=== PATIENT | male | born 1945 | race Caucasian/White ===

== ENCOUNTER → 2017-07-01 | Day surgery (SDC) | payer OTHER, MEDICARE ==
[~2017-07-01] MED LIST: Lactated Ringers 1,000 ML IV SCH; Midazolam 1 MG/ML 2 ML SDV ONE; Propofol 200 MG/20 ML SDV ONE; fentaNYL 100 MCG/2 ML SDV ONE
[2017-07-01 11:14] VITALS: BP 114/71
--- NOTE | 2017-07-01 13:46 | OR ---
DATE OF PROCEDURE: 07/01/2017 PREOPERATIVE DIAGNOSIS: Colon cancer screening. POSTOPERATIVE DIAGNOSIS: Small colon polyp 15 cm from the anal verge. PROCEDURE: Colonoscopy to the cecum with biopsy resection of small colon polyp 15 cm from the anal verge. ANESTHESIA: IV anesthesia with monitored anesthesia care. INDICATION: This 71-year-old white male is referred for a colonoscopy for colon cancer screening. He has never had a colonoscopic exam. Of interest, he says his father and grandfather both had colon cancer. I counseled him for the procedure, including risks and alternatives, and he gave his informed consent to proceed. DESCRIPTION OF PROCEDURE: The patient was placed in the left lateral decubitus position. IV anesthesia was administered by the Anesthesia Service. Time-out was held. A rectal exam was performed, which was unremarkable. The flexible video Olympus colonoscope was introduced through his anus, up his rectum, and out his colon, all the way to the cecum. Once the cecum was reached, the scope was slowly withdrawn, examining the mucosa throughout. No mucosal abnormalities were noted until we reached 15 cm from the anal verge. Here, a small polyp was seen, which was removed with a couple of bites of the biopsy forceps. The scope was brought back in the rectum, where it was retroflexed. The distal rectum appeared unremarkable. The scope was straightened and removed. He tolerated the procedure well. Murray Stewart MD /[id number]
== END ==
LOC: JP.SDS 07:40
PROVIDERS: ATTEND Surgery
DX: Z12.11 Encounter for screening for malignant neoplasm of colon (principal); K63.5 Polyp of colon; I10 Essential (primary) hypertension; J44.9 Chronic obstructive pulmonary disease, unspecified; Z88.0 Allergy status to penicillin; F17.200 Nicotine dependence, unspecified, uncomplicated
CPT/HCPCS: 45380; J2250; J2704; J3010; J7120; 88305

== ENCOUNTER 2020-06-15 16:56 | Emergency (ER) | payer OTHER, MEDICARE ==
--- NOTE | 2020-06-15 17:02 | EDM.PDOC ---
<Steven Chong R - Last Filed: 06/15/20 18:09> ED HPI GENERAL MEDICAL PROBLEM - General Chief Complaint: Fever Stated Complaint: DIFFICULTY BREATHING Time Seen by Provider: 06/15/20 16:59 Source of Information: Reports: Patient, Family, Provider - History of Present Illness INITIAL COMMENTS - FREE TEXT/NARRATIVE: Mr. Rojas is a 74-year-old male that presents ambulatory to the [facility] in clinic and was seen by nurse practitioner today for reported temperature up to 101 degrees associate with hypoxemia and sats 89% in the clinic on room air. Patient is thereafter directed to the ER via wheelchair. Patient has a known history of COPD. Upon ED arrival, patient notes that he has had the acute onset over the last 4 hours of mild body aches, chills, joint aches and shortness of breath with activity and slightly more sob at rest. He has had no headache, neck pain, jaw pain, chest pain with inspiration, abdominal pain, diarrhea or urinary symptoms. No skin rash. No hemoptysis. No weight loss. Not currently on antibiotics. Not on oral steroids. No recent travel, sick or ill contacts. Patient notes mild runny nose, no diarrhea. No Covid exposures. Denies any change in taste or smell. Prior to the last 4 hours, he has been feeling at his baseline. - Related Data Allergies Allergy/AdvReac Type Severity Reaction Status Date / Time Penicillins Allergy Dizziness Verified 06/15/20 17:22 Home Meds: Home Meds Albuterol [Proair HFA] 1 - 2 puff INH Q4HR PRN 08/29/14 [History] Albuterol/Ipratropium [DuoNeb 3.0-0.5 MG/3 ML] 3 ml IH QID 06/29/17 [History] Aspirin [Halfprin] 1 tab PO DAILY 06/29/17 [History] Budesonide/Formoterol Fumarate [Symbicort 160-4.5 Mcg Inhaler] 2 puff IH BID 06/29/17 [History] Furosemide [Lasix] 20 mg PO DAILY 06/29/17 [History] Lisinopril 20 mg PO DAILY 06/29/17 [History] Magnesium Amino Acid Chelate [Magnesium] 500 mg PO DAILY 06/29/17 [History] Naphazoline [AK-Con 0.1% Ophth Soln] 1 drop OP QID 06/29/17 [History] Rosuvastatin [Crestor] 5 mg PO BEDTIME 06/15/20 [History] Past Medical History HEENT History: Reports: Cataract, Hard of Hearing, Impaired Vision Cardiovascular History: Reports: High Cholesterol, Hypertension, SOB on Exertion Respiratory History: Reports: COPD Gastrointestinal History: Reports: None Musculoskeletal History: Reports: Back Pain, Chronic, Fracture, Gout, Neck Pain, Chronic, Osteoarthritis Neurological History: Reports: CVA Endocrine/Metabolic History: Reports: Obesity/BMI 30+ Dermatologic History: Reports: Other (See Below) Other Dermatologic History: fungal skin condition - Infectious Disease History Infectious Disease History: Reports: Chicken Pox, Measles, Mumps - Past Surgical History HEENT Surgical History: Reports: Tonsillectomy Cardiovascular Surgical History: Reports: None Respiratory Surgical History: Reports: None GI Surgical History: Reports: None Endocrine Surgical History: Reports: None Neurological Surgical History: Reports: None Musculoskeletal Surgical History: Reports: Other (See Below) Other Musculoskeletal Surgeries/Procedures:: Smashed right finger - stitches Social & Family History - Caffeine Use Caffeine Use: Reports: None ED ROS GENERAL - Review of Systems Review Of Systems: See Below Constitutional: Reports: Fever, Chills, Malaise, Weakness, Weight Loss, Weight Gain HEENT: Reports: Rhinitis. Denies: Dental Pain, Ear Discharge, Ear Pain, Eye Pain, Nose Pain, Throat Pain, Throat Swelling Respiratory: Reports: Shortness of Breath, Cough. Denies: Pleuritic Chest Pain, Hemoptysis Cardiovascular: Reports: Dyspnea on Exertion, Lightheadedness. Denies: Chest Pain, Edema, Orthopnea, Palpitations, Syncope Endocrine: Reports: Fatigue. Denies: Polyuria GI/Abdominal: Reports: No Symptoms. Denies: Abdominal Pain, Constipation, Diarrhea, Difficulty Swallowing, Stool Incontinence, Vomiting : Reports: No Symptoms. Denies: Flank Pain, Frequency, Urgency Musculoskeletal: Reports: Other (joint pain). Denies: Neck Pain, Shoulder Pain, Arm Pain, Back Pain Skin: Denies: Rash, Lesions Neurological: Reports: Dizziness, Weakness. Denies: Headache, Numbness, Paresthesia, Seizure, Tremors, Change in Speech Psychiatric: Denies: Confusion Hematologic/Lymphatic: Denies: Anemia, Easy Bruising Immunologic: Reports: No Symptoms (all other 10 negative. ) ED EXAM, SEPSIS - Physical Exam Exam Limited By: Other (PPE/N95 and covid precuations) General Appearance: Alert, Mild Distress Eye Exam: Bilateral Eye: Other (mild injection) Ears: Hearing Grossly Normal Nose: Normal Inspection, Other (wearing mask around neck) Throat/Mouth: Normal Lips, Normal Oropharynx, Normal Voice, No Airway Compromise Head: Atraumatic, Normocephalic Neck: Normal Inspection, Full Range of Motion. No: Lymphadenopathy (R), Lymphadenopathy (L) Respiratory/Chest: Chest Non-Tender, Prolonged Expiration Cardiovascular: Regular Rate, Rhythm, No Edema, No JVD, No Murmur, No Rub Peripheral Pulses: 2+: Dorsalis Pedis (L), Dorsalis Pedis (R) GI/Abdominal Exam: Normal Bowel Sounds, Soft, Non-Tender, No Mass. No: Guarding, Rigid, Rebound, Tender, Mass (Male) Exam: Other (normal flanks). No: Rash, Scrotal Swelling, Scrotum Tenderness (L), Scrotum Tenderness (R), Testicular Tenderness (L), Testicular Tenderness (R) Back: Normal Inspection. No: CVA Tenderness (R), Paraspinal Tenderness, Vertebral Tenderness Extremities: Normal Inspection, Non-Tender, Other (no joint swelling. ). No: Pedal Edema, Increased Warmth, Mottled, Pallor, Redness Neurological: Alert, Oriented, Normal Cognition, No Motor/Sensory Deficits Psychiatric: Normal Affect Skin: Warm, Dry, Normal Color, No Rash, Other (undressed head to toe for exam. ) Comments: exam in N95/PPE precautions. #1 Interpretation EKG Date: 06/15/20 Time: 17:29 Rhythm: NSR [place]: LAD-Left [place] Deviation P-Wave: Present QRS: Normal ST-T: Normal QT: Normal Course - Vital Signs Text/Narrative:: Patient presents with acute onset of shortness of breath, fevers over last 4 hours. He does not have signs of respiratory distress and in the ED he is not hypoxic in fact he is satting 93% on room air. Patient's differential is quite broad currently he is pending sepsis labs, procalcitonin, troponin, D-dimer, Covid screen, blood cultures x2. Chest x-ray shows no pneumothorax, no hemothorax. No cephalization. Normal cardiac silhouette. There is scattered bibasilar infiltrate versus scarring. Flattened hemidiaphragms. Care is transitioned to Dr. Dukes officer at 1810 for final disposition and review of pending laboratory studies. Departure - Departure Disposition: Home, Self-Care 01 Clinical Impression: COPD exacerbation - Discharge Information Instructions: Chronic Obstructive Pulmonary Disease, [id number] Referrals: Eddie Stanford MD [Primary Care Provider] - Forms: ED Department Discharge Additional Instructions: Take full course of antibiotics, take full course of prednisone please followup with your primary care provider in 3-5 days if not better, please call return to the emergency department with worsening of symptoms. <OfficerErnst - Last Filed: 06/15/20 19:12> ED EXAM, SEPSIS - Physical Exam Exam: See Below Text/Narrative:: Cardiovascular demonstrates regular rate and rhythm S1-S2 lung sounds are distant and on appreciate any adventitious noises Course - Vital Signs Last Recorded V/S: Last Vital Signs Temp 99.7 F 06/15/20 17:37 Pulse 91 06/15/20 17:34 Resp 22 H 06/15/20 17:34 BP 142/73 H 06/15/20 17:34 Pulse Ox 91 L 06/15/20 17:34 - Orders/Labs/Meds Orders: Active Orders 24 hr Category Date Time Status EKG Documentation Completion [RC] ASDIRECTED Care 06/15/20 17:07 Active EKG Documentation Completion [RC] ASDIRECTED Care 06/15/20 17:07 Active Chest 1V Frontal [CR] Stat Exams 06/15/20 17:07 Taken CULTURE BLOOD [BC] Stat Lab 06/15/20 17:40 Received CULTURE BLOOD [BC] Urgent Lab 06/15/20 17:30 Received Sodium Chloride 0.9% [Normal Saline] 1,000 ml Med 06/15/20 18:00 Active IV ASDIRECTED Sodium Chloride 0.9% [Saline Flush] Med 06/15/20 17:07 Active 10 ml FLUSH ASDIRECTED PRN Sodium Chloride 0.9% [Saline Flush] Med 06/15/20 17:07 Active 10 ml FLUSH ASDIRECTED PRN Blood Culture x2 Reflex Set [OM.PC] Urgent Oth 06/15/20 17:22 Ordered Saline Lock Insert [OM.PC] Stat Oth 06/15/20 17:07 Ordered EKG 12 Lead [EK] Stat Ther 06/15/20 17:07 Ordered Medication Orders Sodium Chloride (Normal Saline) 1,000 mls @ 999 mls/hr IV ASDIRECTED ALIDA Last Admin: 06/15/20 18:03 Dose: 999 mls/hr Documented by: YUMI Sodium Chloride (Saline Flush) 10 ml FLUSH ASDIRECTED PRN PRN Reason: Keep Vein Open Sodium Chloride (Saline Flush) 10 ml FLUSH ASDIRECTED PRN PRN Reason: Keep Vein Open Last Admin: 06/15/20 17:52 Dose: 10 ml Documented by: YUMI Labs: Laboratory Tests 06/15/20 06/15/20 06/15/20 Range/Units 17:19 17:19 17:19 WBC 15.2 H (4.5-11.0) K/uL RBC 5.31 (4.30-5.90) M/uL Hgb 13.8 (12.0-15.0) g/dL Hct 43.8 (40.0-54.0) % MCV 83 (80-98) fL MCH 26 L (27-31) pg MCHC 32 (32-36) % Plt Count 194 (150-400) K/uL Neut % (Auto) 82 H (36-66) % Lymph % (Auto) 8 L (24-44) % [place] % (Auto) 10 H (2-6) % Eos % (Auto) 0 L (2-4) % Baso % (Auto) 0 (0-1) % PT 10.6 (9.5-12.0) sec INR 0.97 (0.80-1.20) D-Dimer, Quantitative 1041.57 H (0.0-500.0) ng/mL Sodium (140-148) mmol/L Potassium (3.6-5.2) mmol/L Chloride (100-108) mmol/L Carbon Dioxide (21-32) mmol/L Anion Gap (5.0-14.0) mmol/L BUN (7-18) mg/dL Creatinine (0.8-1.3) mg/dL Est Cr Clr Drug Dosing mL/min Estimated GFR (MDRD) (>60) Glucose (74-106) mg/dL Lactic Acid (0.4-2.0) mmol/L Calcium (8.5-10.1) mg/dL Total Bilirubin (0.2-1.0) mg/dL AST (15-37) U/L ALT (12-78) U/L Alkaline Phosphatase (46-116) U/L Troponin I (0.000-0.056) ng/mL Total Protein (6.4-8.2) g/dL Albumin (3.4-5.0) g/dL Globulin (2.3-3.5) g/dL Albumin/Globulin Ratio (1.2-2.2) Procalcitonin ng/mL Urine Color (YELLOW) Urine Appearance (CLEAR) Urine pH (5.0-8.0) Ur Specific [place] (1.008-1.030) Urine Protein (NEGATIVE) mg/dL Urine Glucose (UA) (NEGATIVE) mg/dL Urine Ketones (NEGATIVE) mg/dL Urine Occult Blood (NEGATIVE) Urine Nitrite (NEGATIVE) Urine Bilirubin (NEGATIVE) Urine Urobilinogen (0.2-1.0) EU/dL Ur Leukocyte Esterase (NEGATIVE) Urine RBC (0-5) Urine WBC (0-5) Ur Epithelial Cells Amorphous Sediment Urine Bacteria Urine Mucus Influenza Type A RNA (NEGATIVE) RSV RNA (INAAT) (NEGATIVE) Influenza Type B RNA (NEGATIVE) SARS-CoV-2 RNA (QUE) (NEGATIVE) 06/15/20 06/15/20 06/15/20 Range/Units 17:19 17:19 17:19 WBC (4.5-11.0) K/uL RBC (4.30-5.90) M/uL Hgb (12.0-15.0) g/dL Hct (40.0-54.0) % MCV (80-98) fL MCH (27-31) pg MCHC (32-36) % Plt Count (150-400) K/uL Neut % (Auto) (36-66) % Lymph % (Auto) (24-44) % [place] % (Auto) (2-6) % Eos % (Auto) (2-4) % Baso % (Auto) (0-1) % PT (9.5-12.0) sec INR (0.80-1.20) D-Dimer, Quantitative (0.0-500.0) ng/mL Sodium 138 L (140-148) mmol/L Potassium 4.4 (3.6-5.2) mmol/L Chloride 103 (100-108) mmol/L Carbon Dioxide 26 (21-32) mmol/L Anion Gap 13.4 (5.0-14.0) mmol/L BUN 30 H D (7-18) mg/dL Creatinine 1.8 H D (0.8-1.3) mg/dL Est Cr Clr Drug Dosing 36.55 mL/min Estimated GFR (MDRD) 37 L (>60) Glucose 111 H (74-106) mg/dL Lactic Acid 1.4 (0.4-2.0) mmol/L Calcium 8.9 (8.5-10.1) mg/dL Total Bilirubin 0.7 (0.2-1.0) mg/dL AST 17 (15-37) U/L ALT 21 D (12-78) U/L Alkaline Phosphatase 56 (46-116) U/L Troponin I < 0.017 (0.000-0.056) ng/mL Total Protein 7.2 (6.4-8.2) g/dL Albumin 4.0 (3.4-5.0) g/dL Globulin 3.2 (2.3-3.5) g/dL Albumin/Globulin Ratio 1.3 (1.2-2.2) Procalcitonin 0.10 ng/mL Urine Color (YELLOW) Urine Appearance (CLEAR) Urine pH (5.0-8.0) Ur Specific [place] (1.008-1.030) Urine Protein (NEGATIVE) mg/dL Urine Glucose (UA) (NEGATIVE) mg/dL Urine Ketones (NEGATIVE) mg/dL Urine Occult Blood (NEGATIVE) Urine Nitrite (NEGATIVE) Urine Bilirubin (NEGATIVE) Urine Urobilinogen (0.2-1.0) EU/dL Ur Leukocyte Esterase (NEGATIVE) Urine RBC (0-5) Urine WBC (0-5) Ur Epithelial Cells Amorphous Sediment Urine Bacteria Urine Mucus Influenza Type A RNA (NEGATIVE) RSV RNA (INAAT) (NEGATIVE) Influenza Type B RNA (NEGATIVE) SARS-CoV-2 RNA (QUE) (NEGATIVE) 06/15/20 06/15/20 Range/Units 17:25 18:17 WBC (4.5-11.0) K/uL RBC (4.30-5.90) M/uL Hgb (12.0-15.0) g/dL Hct (40.0-54.0) % MCV (80-98) fL MCH (27-31) pg MCHC (32-36) % Plt Count (150-400) K/uL Neut % (Auto) (36-66) % Lymph % (Auto) (24-44) % [place] % (Auto) (2-6) % Eos % (Auto) (2-4) % Baso % (Auto) (0-1) % PT (9.5-12.0) sec INR (0.80-1.20) D-Dimer, Quantitative (0.0-500.0) ng/mL Sodium (140-148) mmol/L Potassium (3.6-5.2) mmol/L Chloride (100-108) mmol/L Carbon Dioxide (21-32) mmol/L Anion Gap (5.0-14.0) mmol/L BUN (7-18) mg/dL Creatinine (0.8-1.3) mg/dL Est Cr Clr Drug Dosing mL/min Estimated GFR (MDRD) (>60) Glucose (74-106) mg/dL Lactic Acid (0.4-2.0) mmol/L Calcium (8.5-10.1) mg/dL Total Bilirubin (0.2-1.0) mg/dL AST (15-37) U/L ALT (12-78) U/L Alkaline Phosphatase (46-116) U/L Troponin I (0.000-0.056) ng/mL Total Protein (6.4-8.2) g/dL Albumin (3.4-5.0) g/dL Globulin (2.3-3.5) g/dL Albumin/Globulin Ratio (1.2-2.2) Procalcitonin ng/mL Urine Color Yellow (YELLOW) Urine Appearance Clear (CLEAR) Urine pH 6.0 (5.0-8.0) Ur Specific [place] 1.020 (1.008-1.030) Urine Protein Negative (NEGATIVE) mg/dL Urine Glucose (UA) Negative (NEGATIVE) mg/dL Urine Ketones Negative (NEGATIVE) mg/dL Urine Occult Blood Negative (NEGATIVE) Urine Nitrite Negative (NEGATIVE) Urine Bilirubin Negative (NEGATIVE) Urine Urobilinogen 0.2 (0.2-1.0) EU/dL Ur Leukocyte Esterase Negative (NEGATIVE) Urine RBC Not seen (0-5) Urine WBC Not seen (0-5) Ur Epithelial Cells Not seen Amorphous Sediment Rare Urine Bacteria Not seen Urine Mucus Not seen Influenza Type A RNA Negative (NEGATIVE) RSV RNA (INAAT) Negative (NEGATIVE) Influenza Type B RNA Negative (NEGATIVE) SARS-CoV-2 RNA (QUE) Negative (NEGATIVE) Meds: Medications Generic Name Dose Route Start Last Admin Trade Name Freq PRN Reason Stop Dose Admin Sodium Chloride 1,000 mls @ 999 mls/hr 06/15/20 18:00 06/15/20 18:03 Normal Saline IV 999 mls/hr ASDIRECTED ALIDA Administration Sodium Chloride 10 ml 06/15/20 17:07 Saline Flush FLUSH ASDIRECTED PRN Keep Vein Open Sodium Chloride 10 ml 06/15/20 17:07 06/15/20 17:52 Saline Flush FLUSH 10 ml ASDIRECTED PRN Administration Keep Vein Open Departure - Departure Time of Disposition: 19:12 Condition: Fair Sepsis Event Note (ED) - Focused Exam Vital Signs: Vital Signs Temp Pulse Resp BP Pulse Ox 06/15/20 17:37 99.7 F 06/15/20 17:34 99.3 F 91 22 H 142/73 H 91 L - Assessment/Plan Plan: Took over care from Dr. Chong at 1800 Assessment Acuity = acute Site and laterality = COPD exacerbation Etiology = unknown Manifestations = dyspnea Location of injury = Home Lab values = WBC elevated 15.2 consistent leukocytosis, D-dimer elevated 1041 of uncertain significance creatinine elevated 1.8 consistent chronic renal failure stage G3 B lactic acid normal 1.4 troponin was negative procalcitonin normal range 0.10 urinalysis negative chest x-ray I did review films myself I cannot appreciate any acute process, the official read from radiology is pending, Covid influenza RSV all negative EKG demonstrates a sinus rhythm there is no ST elevations or depressions Plan I did review lab work with him EKG and chest x-ray results because of his elevated creatinine he is not a good candidate for an angio chest study he is not tachycardic at this time is not hypoxic I talked to him about further work- up but he declined therefore we will try empiric treatment as outpatient prescription written for doxycycline 100 mg p.o. twice daily x7 days short course of prednisone 20 mg once a day x7 days he is going to try and follow-up with his primary care in the next 3 to 5 days for reevaluation if no improvement if he gets significantly worse he will return to the emergency department where we may have to pursue the elevated D-dimer This note was dictated using [employer] voice recognition software please call with any questions on syntax or grammar.
[2020-06-15] MEDS ORDERED: Sodium Chloride 0.9% 10 ML Syringe FLUSH PRN ×2 (17:07)
[2020-06-15] MEDS ORDERED: Sodium Chloride 0.9% 1,000 ML IRR ONE (17:08)
[2020-06-15 17:35] VITALS: BP 142/73; PULSE 91
[2020-06-15] MEDS ORDERED: Sodium Chloride 0.9% 1,000 ML IV SCH (18:00)
[2020-06-15 18:10] LABS: CORONAVIRUS COVID-19 NAA NEGATIVE (NEGATIVE)
--- NOTE | 2020-06-18 09:19 | CR ---
CHEST: Portable 06/15/2020 at 5:34 PM CLINICAL HISTORY:Chest pain COMPARISON:2015 FINDINGS: Heart size and pulmonary vascularity are normal. There are some streaky densities in both lower lung bui which may be some streaky atelectasis. The this was seen to lesser degree in 2015. There is some patchy density in the left infrahilar region. This is new. There are atherosclerotic changes in the aorta. IMPRESSION: Minimal patchy left infrahilar density. Early infiltrate is not excluded Streaky densities in both lung bases. Some of this may be some patchy atelectasis and some scarring.
== END 2020-06-15 19:31 | disposition home or self-care (01) ==
LOC: JP.ED 16:56
DX: J44.1 Chronic obstructive pulmonary disease with (acute) exacerbation (principal); E78.00 Pure hypercholesterolemia, unspecified; I10 Essential (primary) hypertension; E66.9 Obesity, unspecified; Z68.36 Body mass index [BMI] 36.0-36.9, adult; Z88.0 Allergy status to penicillin; Z86.73 Personal history of transient ischemic attack (TIA), and cerebral infarction without residual deficits; Z79.899 Other long term (current) drug therapy; Z20.822 Contact with and (suspected) exposure to COVID-19
CPT/HCPCS: 0241U; 36415; 71045; 80053; 81001; 83605; 84145; 84484; 85025; 85379; 85610; 87040; 93005; 99285; J7030; 99284

== ENCOUNTER 2021-07-31 21:09 | Emergency (ER) | payer OTHER ==
[2021-07-31] MEDS ORDERED: Aspirin 81 MG Tab.Chew PO ONE (21:17)
[2021-07-31] MEDS ORDERED: Nitroglycerin 0.4 MG Tab.SL ONE (21:18)
[2021-07-31] MEDS ORDERED: Aspirin 81 MG Tab.Chew ONE (21:18)
[2021-07-31] MEDS: Nitroglycerin 0.4 MG Tab.SL SL PRN ×2 (21:21→21:35)
[2021-07-31] MEDS ORDERED: Morphine 4 MG/ML Syringe IVPUSH ONE (22:04)
[2021-07-31 22:34] LABS: CORONAVIRUS COVID-19 NAA NEGATIVE (NEGATIVE)
[2021-07-31] MEDS ORDERED: Levofloxacin/Dextrose 5%-Water 500 MG in Premix Bag 1 BAG IV ONE (23:06)
[2021-08-01 01:12] VITALS: PULSE 80
[2021-08-01 01:30] VITALS: BP 134/50
== END 2021-08-01 01:46 ==
LOC: JP.ED 21:09
DX: J18.9 Pneumonia, unspecified organism (principal); J20.9 Acute bronchitis, unspecified; J96.01 Acute respiratory failure with hypoxia; R91.1 Solitary pulmonary nodule; E78.00 Pure hypercholesterolemia, unspecified; I10 Essential (primary) hypertension; J44.9 Chronic obstructive pulmonary disease, unspecified; E66.9 Obesity, unspecified; Z68.30 Body mass index [BMI] 30.0-30.9, adult; Z86.73 Personal history of transient ischemic attack (TIA), and cerebral infarction without residual deficits; Z88.0 Allergy status to penicillin; Z79.899 Other long term (current) drug therapy; Z20.822 Contact with and (suspected) exposure to COVID-19
CPT/HCPCS: 0241U; 36415; 71045; 71045-26; 71250; 80053; 83605; 83880; 84484; 85025; 85379; 85610; 85730; 86140; 87040; 93005; 93010; 96365; 96366; 96375; 99284; 99285-25; A9270-GY; J1956; J2270

== ENCOUNTER 2021-08-12 22:03 | Emergency (ER) | payer OTHER ==
[2021-08-12] MEDS ORDERED: Levofloxacin/Dextrose 5%-Water 750 MG in Premix Bag 1 BAG IV ONE (23:12)
[2021-08-12 23:33] VITALS: PULSE 96
[2021-08-13 00:03] VITALS: BP 97/50
== END 2021-08-13 01:07 ==
LOC: JP.ED 22:03
DX: J18.9 Pneumonia, unspecified organism (principal); J96.01 Acute respiratory failure with hypoxia; J44.9 Chronic obstructive pulmonary disease, unspecified; E78.00 Pure hypercholesterolemia, unspecified; I12.9 Hypertensive chronic kidney disease with stage 1 through stage 4 chronic kidney disease, or unspecified chronic kidney disease; N18.32 Chronic kidney disease, stage 3b; E66.9 Obesity, unspecified; M10.9 Gout, unspecified; Z68.39 Body mass index [BMI] 39.0-39.9, adult; Z86.73 Personal history of transient ischemic attack (TIA), and cerebral infarction without residual deficits; Z88.0 Allergy status to penicillin; Z79.899 Other long term (current) drug therapy
CPT/HCPCS: 36415; 71046; 71046-26; 80053; 83605; 83880; 84145; 85025; 86140; 87040; 96365; 99284; 99285-25; J1956; U0002

== ENCOUNTER 2021-10-11 10:23 | Day surgery (SDC) | payer MEDICARE, OTHER ==
[2021-10-11] MEDS ORDERED: Propofol 200 MG/20 ML SDV ONE (10:27)
[2021-10-11] MEDS ORDERED: fentaNYL 100 MCG/2 ML SDV ONE (10:27)
[2021-10-11] MEDS ORDERED: Lactated Ringers 1,000 ML IV SCH (11:00)
[2021-10-11 12:18] VITALS: BP 127/58; PULSE 62
== END 2021-10-11 12:45 | disposition home or self-care (01) ==
LOC: JP.SDS 10:23
PROVIDERS: ATTEND Family Medicine
DX: R13.10 Dysphagia, unspecified (principal); J44.9 Chronic obstructive pulmonary disease, unspecified; G47.33 Obstructive sleep apnea (adult) (pediatric); I25.10 Atherosclerotic heart disease of native coronary artery without angina pectoris; I12.9 Hypertensive chronic kidney disease with stage 1 through stage 4 chronic kidney disease, or unspecified chronic kidney disease; E78.5 Hyperlipidemia, unspecified; N18.30 Chronic kidney disease, stage 3 unspecified; K21.9 Gastro-esophageal reflux disease without esophagitis; Z88.0 Allergy status to penicillin
CPT/HCPCS: 43235; J2704; J3010; J7120

== ENCOUNTER 2023-09-03 10:56 | Inpatient (IN) | payer OTHER, MEDICARE ==
[2023-09-03] MEDS: Sodium Chloride 0.9% 1,000 ML IV ONE (12:20)
[2023-09-03 12:22] LABS: BASE EXCESS VENOUS 7.1 mm/L; BASOPHILS ABSOLUTE AUTO 0.05 K/uL (0.00-0.10); BASOPHILS PERCENT AUTO 0.2 % (0.1-1.3); BICARBONATE,VENOUS 30.6 mmol/L; CARBOXYHEMOGLOBIN 3.1 % (0.0-1.6); EOSINOPHILS ABSOLUTE AUTO 0.06 K/uL (0.00-0.40); EOSINOPHILS PERCENT AUTO 0.3 % (0.0-5.4); HEMATOCRIT 40.1 % (38.4-49.7); HEMOGLOBIN 12.5 g/dL (12.9-16.9); IMMATURE GRAN ABSOLUTE AUTO 0.22 K/uL (0.00-0.23); IMMATURE GRAN PERCENT AUTO 0.9 % (0.0-0.7); LYMPHOCYTES ABSOLUTE AUTO 1.51 K/uL (0.8-3.3); LYMPHOCYTES PERCENT AUTO 6.4 % (11.4-47.7); MEAN CORPUSCULAR HEMOGLOBIN 23.6 pg (31.6-35.5); MEAN CORPUSCULAR HGB CONC 31.2 g/dL (31.6-35.5); MEAN CORPUSCULAR VOLUME 75.8 fL (81.4-99.0); METHEMOGLOBIN 0.9 %; MONOCYTES PERCENT AUTO 8.4 % (3.3-12.6); NEUTROPHILS ABSOLUTE AUTO 19.83 K/uL (1.0-7.6); NEUTROPHILS PERCENT AUTO 83.8 % (40.0-78.1); O2 SATURATION VENOUS 62.5; PCO2 VENOUS 39.8 mm/Hg; PH,VENOUS 7.498 (7.350-7.450); PLATELET COUNT,PLT 228 K/uL (130-375); RED BLOOD CELL COUNT 5.29 M/uL (4.14-5.76); WHITE BLOOD CELL COUNT,WBC 23.7 K/uL (3.2-11.0)
[2023-09-03] MEDS: Dexamethasone 4 MG/ML SDV IVPUSH ONE (12:22)
[2023-09-03 12:23] LABS: PO2 VENOUS 33.2 mm/Hg
[2023-09-03] MEDS: Albuterol/Ipratropium 3.0-0.5 MG/3 ML Neb Soln NEB ONE (12:25)
[2023-09-03 12:50] LABS: ALANINE AMINOTRANSFERASE,ALT 52 U/L (12-78); ALBUMIN 3.7 g/dL (3.4-5.0); ALKALINE PHOSPHATASE 62 U/L (46-116); ASPARTATE AMNIOTRANSFERASE,AST 20 U/L (15-37); BLOOD UREA NITROGEN,BUN 21 mg/dL (7-18); CALCIUM 8.9 mg/dL (8.5-10.1); CARBON DIOXIDE,CO2 32 mmol/L (21-32); CHLORIDE,CL 98 mmol/L (100-108); CREATININE 1.9 mg/dL (0.8-1.3); EST CRCL DRUG DOSING (CG) 34.15 mL/min; ESTIMATED GFR 36 mL/min (>60); GLUCOSE RANDOM 133 mg/dL (74-106); POTASSIUM,K 3.5 mmol/L (3.6-5.2); PRO B-TYPE NATRIUR PEPT,BNPPRO 134 pg/mL (5-450); PROTEIN TOTAL,TP 7.5 g/dL (6.4-8.2); SODIUM,NA 138 mmol/L (140-148); TROPONIN I HIGH SENSITIVITY 7.4 pg/mL (<=60.3)
[2023-09-03 12:52] LABS: ANION GAP 11.5 mmol/L (5.0-14.0)
[2023-09-03 13:32] LABS: CORONAVIRUS COVID-19 NAA NEGATIVE (NEGATIVE); INFLUENZA A NAA NEGATIVE (NEGATIVE); INFLUENZA B NAA NEGATIVE (NEGATIVE); RESPIRATORY SYNCYTIAL VIR NAA NEGATIVE (NEGATIVE)
[2023-09-03] MEDS: Sodium Chloride 0.9% 10 ML Syringe FLUSH PRN (14:08)
[2023-09-03] MEDS: Sodium Chloride 0.9% 100 ML IV SCH (14:08)
[2023-09-03] MEDS: Iopamidol 755 Mg/ML 100 ML Bottle IV SCH (14:08)
[2023-09-03] MEDS: Azithromycin 1,000 MG in Sodium Chloride 0.9% 500 ML IV ONE (15:00)
[2023-09-03] MEDS: cefTRIAXone 2 GM in Sodium Chloride 0.9% 50 ML IV ONE (16:27)
[2023-09-03] MEDS ORDERED: Acetaminophen 325 MG Tab PO PRN (16:56)
[2023-09-03] MEDS ORDERED: Sodium Chloride 0.9% 10 ML Syringe FLUSH PRN (16:56)
[2023-09-03] MEDS ORDERED: Ondansetron 4 MG/2 ML SDV IV PRN (16:56)
[2023-09-03] MEDS ORDERED: Albuterol 0.083% 2.5 MG/3 ML Neb Soln NEB PRN (16:56)
[2023-09-03] MEDS: Sodium Chloride 0.9% 1,000 ML IV SCH (17:06)
[2023-09-03] MEDS: Albuterol/Ipratropium 3.0-0.5 MG/3 ML Neb Soln INH SCH (17:18)
[2023-09-03] MEDS: Enoxaparin 40 MG/0.4 ML Syringe SUBCUT SCH (17:18)
[2023-09-03] MEDS: hydrALAZINE 25 MG Tab PO SCH (20:07)
[2023-09-03] MEDS: Bumetanide 1 MG Tab PO SCH (20:10)
[2023-09-03] MEDS: Formoterol/Mometasone 200-5 MCG 8.8 GM Inhaler IH SCH (20:10)
[2023-09-03] MEDS: Amitriptyline 25 MG Tab PO SCH (20:11)
[2023-09-03] MEDS: Pregabalin 100 MG Cap PO SCH (20:15)
[2023-09-03] MEDS ORDERED: Non-Formulary Medication 1 Each (Lifitegrast [Xiidra] 1 EACH Droperette) EYEBOTH SCH (21:00)
[2023-09-03] MEDS: Hypromellose 0.3% Ophth Soln 15 ML Bottle EYEBOTH SCH (23:29)
[2023-09-04 05:23] LABS: HEMATOCRIT 33.8 % (38.4-49.7); HEMOGLOBIN 10.3 g/dL (12.9-16.9); MEAN CORPUSCULAR HEMOGLOBIN 23.1 pg (31.6-35.5); MEAN CORPUSCULAR HGB CONC 30.5 g/dL (31.6-35.5); MEAN CORPUSCULAR VOLUME 75.8 fL (81.4-99.0); RED BLOOD CELL COUNT 4.46 M/uL (4.14-5.76); WHITE BLOOD CELL COUNT,WBC 17.5 K/uL (3.2-11.0)
[2023-09-04 05:46] LABS: CALCIUM 7.9 mg/dL (8.5-10.1); CREATININE 1.6 mg/dL (0.8-1.3); EST CRCL DRUG DOSING (CG) 40.56 mL/min; MAGNESIUM 2.1 mg/dL (1.8-2.4); POTASSIUM,K 3.4 mmol/L (3.6-5.2)
[2023-09-04 05:48] LABS: ANION GAP 10.4 mmol/L (5.0-14.0)
[2023-09-04] MEDS: Pantoprazole 40 MG Tab.CR PO SCH (07:26)
[2023-09-04] MEDS: Polyethylene Glycol 3350 Powder 17 GM Packet PO PRN (07:30)
[2023-09-04] MEDS: Rosuvastatin 5 MG Tab PO SCH (08:45)
[2023-09-04] MEDS: Potassium Chloride 20 MEQ Tab.ER PO ONE (08:45)
[2023-09-04] MEDS: Aspirin 81 MG Tab.EC PO SCH (08:45)
[2023-09-04] MEDS: Allopurinol 100 MG Tab PO SCH (08:46)
[2023-09-04] MEDS: Azithromycin 500 MG in Sodium Chloride 0.9% 250 ML IV SCH (13:55)
[2023-09-04] MEDS: cefTRIAXone 1 GM in Sodium Chloride 0.9% 50 ML IV SCH (16:15)
[2023-09-04] MEDS: Bumetanide 1 MG Tab PO SCH (16:20)
[2023-09-05 05:36] LABS: HEMATOCRIT 32.8 % (38.4-49.7); HEMOGLOBIN 10.1 g/dL (12.9-16.9); MEAN CORPUSCULAR HEMOGLOBIN 23.3 pg (31.6-35.5); MEAN CORPUSCULAR HGB CONC 30.8 g/dL (31.6-35.5); MEAN CORPUSCULAR VOLUME 75.8 fL (81.4-99.0); RED BLOOD CELL COUNT 4.33 M/uL (4.14-5.76); WHITE BLOOD CELL COUNT,WBC 11.2 K/uL (3.2-11.0)
[2023-09-05 05:48] LABS: CREATININE 1.5 mg/dL (0.8-1.3); EST CRCL DRUG DOSING (CG) 43.26 mL/min; POTASSIUM,K 3.2 mmol/L (3.6-5.2)
[2023-09-05 05:49] LABS: CALCIUM 8.2 mg/dL (8.5-10.1)
[2023-09-05 05:58] LABS: ANION GAP 11.2 mmol/L (5.0-14.0)
[2023-09-05] MEDS: Potassium Chloride 20 MEQ Tab.ER PO ONE (08:29)
[2023-09-05] MEDS: Potassium Chloride 10 MEQ in Premix Bag 1 BAG IV SCH (10:18)
[2023-09-05] MEDS: guaiFENesin/Dextromethorphan 100-10 MG/5 ML Soln 10 ML Cup PO PRN (11:28)
[2023-09-06 04:56] LABS: HEMATOCRIT 36.2 % (38.4-49.7); HEMOGLOBIN 11.2 g/dL (12.9-16.9); MEAN CORPUSCULAR HEMOGLOBIN 23.5 pg (31.6-35.5); MEAN CORPUSCULAR HGB CONC 30.9 g/dL (31.6-35.5); MEAN CORPUSCULAR VOLUME 75.9 fL (81.4-99.0); RED BLOOD CELL COUNT 4.77 M/uL (4.14-5.76); WHITE BLOOD CELL COUNT,WBC 9.3 K/uL (3.2-11.0)
[2023-09-06 05:14] LABS: CALCIUM 8.8 mg/dL (8.5-10.1); CREATININE 1.5 mg/dL (0.8-1.3); EST CRCL DRUG DOSING (CG) 43.26 mL/min; POTASSIUM,K 3.3 mmol/L (3.6-5.2)
[2023-09-06 05:19] LABS: ANION GAP 11.3 mmol/L (5.0-14.0)
[2023-09-06] MEDS: Potassium Chloride 10 MEQ in Premix Bag 1 BAG IV SCH (09:03)
[2023-09-06 15:13] VITALS: BP 151/56; PULSE 79
== END 2023-09-06 15:26 | disposition home or self-care (01) | DRG 193 ==
LOC: JP.ED 10:56 → JP.2SS 15:28
PROVIDERS: ADMIT Hospitalist; ATTEND Hospitalist
PROC: 4A033R1 Measurement of Arterial Saturation, Peripheral, Percutaneous Approach (ICD-10-PCS; principal; 2023-09-03)
DX: J18.9 Pneumonia, unspecified organism (principal); J96.21 Acute and chronic respiratory failure with hypoxia; J44.9 Chronic obstructive pulmonary disease, unspecified; J44.0 Chronic obstructive pulmonary disease with (acute) lower respiratory infection; N18.30 Chronic kidney disease, stage 3 unspecified; H91.90 Unspecified hearing loss, unspecified ear; H54.7 Unspecified visual loss; E78.00 Pure hypercholesterolemia, unspecified; Z79.82 Long term (current) use of aspirin; M06.9 Rheumatoid arthritis, unspecified; M54.2 Cervicalgia; G89.29 Other chronic pain; E66.9 Obesity, unspecified; Z66 Do not resuscitate; I12.9 Hypertensive chronic kidney disease with stage 1 through stage 4 chronic kidney disease, or unspecified chronic kidney disease; N18.32 Chronic kidney disease, stage 3b; Z99.81 Dependence on supplemental oxygen; Z88.0 Allergy status to penicillin; Z79.51 Long term (current) use of inhaled steroids; Z79.899 Other long term (current) drug therapy; Z87.81 Personal history of (healed) traumatic fracture; Z86.73 Personal history of transient ischemic attack (TIA), and cerebral infarction without residual deficits; Z68.39 Body mass index [BMI] 39.0-39.9, adult; Z90.89 Acquired absence of other organs; Z87.891 Personal history of nicotine dependence
CPT/HCPCS: 0241U; 36415; 71045; 71045-26; 71275; 71275-26; 80048; 80053; 82803; 83605; 83735; 83880; 84145; 84484; 85025; 85027; 85379; 87040; 93005; 93010; 94640; 94667; 96361; 96365; 96375; 97161-GP; 97530-GP; 99222; 99232; 99238; 99285; 99285-25; A9270-GY; J0456; J0696; J1100; J1650; J3480; J3490; J7030; J7040; J7050; J7620; Q9967

== ENCOUNTER 2024-01-13 06:16 | Day surgery (SDC) | payer OTHER, MEDICARE ==
[2024-01-13] MEDS ORDERED: fentaNYL 50 MCG/ML SDV ONE (06:56)
[2024-01-13] MEDS ORDERED: Propofol 200 MG/20 ML SDV ONE ×2 (06:56→07:53)
[2024-01-13] MEDS: Sodium Chloride 0.9% 1,000 ML IV SCH (07:10)
[2024-01-13 08:26] VITALS: PULSE 66
[2024-01-13 09:07] VITALS: BP 128/64
== END 2024-01-13 09:30 | disposition home or self-care (01) ==
LOC: JP.SDS 06:16
PROVIDERS: ATTEND Surgery
DX: K29.50 Unspecified chronic gastritis without bleeding (principal); D64.9 Anemia, unspecified; I12.9 Hypertensive chronic kidney disease with stage 1 through stage 4 chronic kidney disease, or unspecified chronic kidney disease; N18.9 Chronic kidney disease, unspecified; Z88.0 Allergy status to penicillin
CPT/HCPCS: 00813; 43239; 45378; 88305; 88342; J2704; J3010; J7030

== ENCOUNTER 2024-01-26 07:18 | Day surgery (SDC) | payer OTHER, MEDICARE ==
[2024-01-26] MEDS ORDERED: Propofol 200 MG/20 ML SDV ONE ×2 (07:54→08:31)
[2024-01-26] MEDS: Sodium Chloride 0.9% 1,000 ML IV SCH (07:59)
[2024-01-26 09:45] VITALS: BP 141/51; PULSE 77
== END 2024-01-26 09:51 | disposition home or self-care (01) ==
LOC: JP.SDS 07:18
PROVIDERS: ATTEND Surgery
DX: D64.9 Anemia, unspecified (principal); K21.9 Gastro-esophageal reflux disease without esophagitis; J44.9 Chronic obstructive pulmonary disease, unspecified; N18.9 Chronic kidney disease, unspecified
CPT/HCPCS: 45378; J2704; J7030; 00812-QZ

== ENCOUNTER 2024-02-03 15:16 | Inpatient (IN) | payer OTHER, MEDICARE ==
[2024-02-03 16:03] LABS: BASOPHILS PERCENT AUTO 0.3 % (0.1-1.3); EOSINOPHILS ABSOLUTE AUTO 0.04 K/uL (0.00-0.40); EOSINOPHILS PERCENT AUTO 0.6 % (0.0-5.4); HEMATOCRIT 43.3 % (38.4-49.7); IMMATURE GRAN ABSOLUTE AUTO 0.04 K/uL (0.00-0.23); IMMATURE GRAN PERCENT AUTO 0.6 % (0.0-0.7); LYMPHOCYTES ABSOLUTE AUTO 0.65 K/uL (0.8-3.3); LYMPHOCYTES PERCENT AUTO 10.3 % (11.4-47.7); MEAN CORPUSCULAR HEMOGLOBIN 26.3 pg (31.6-35.5); MEAN CORPUSCULAR HGB CONC 32.3 g/dL (31.6-35.5); MEAN CORPUSCULAR VOLUME 81.2 fL (81.4-99.0); MONOCYTES ABSOLUTE AUTO 1.26 K/uL (0.20-0.90); NEUTROPHILS PERCENT AUTO 68.2 % (40.0-78.1); PLATELET COUNT,PLT 158 K/uL (130-375); RED BLOOD CELL COUNT 5.33 M/uL (4.14-5.76); WHITE BLOOD CELL COUNT,WBC 6.3 K/uL (3.2-11.0)
[2024-02-03] MEDS: Acetaminophen 500 MG Tab PO ONE (16:05)
[2024-02-03] MEDS: Albuterol/Ipratropium 3.0-0.5 MG/3 ML Neb Soln NEB ONE ×2 (16:05→19:56)
[2024-02-03] MEDS: Sodium Chloride 0.9% 1,000 ML IV STA (16:08)
[2024-02-03 16:09] LABS: BASOPHILS ABSOLUTE AUTO 0.02 K/uL (0.00-0.10)
[2024-02-03 16:18] LABS: APPEARANCE,URINE CLEAR (CLEAR); BILIRUBIN,URINE NEGATIVE (NEGATIVE); COLOR,URINE YELLOW (YELLOW); GLUCOSE,URINE NEGATIVE (NEGATIVE); KETONES,URINE NEGATIVE (NEGATIVE); LEUKOCYTE ESTERASE,URINE NEGATIVE (NEGATIVE); NITRITE,URINE NEGATIVE (NEGATIVE); OCCULT BLOOD,URINE NEGATIVE (NEGATIVE); PROTEIN,URINE NEGATIVE (NEGATIVE)
[2024-02-03 16:23] LABS: AMORPHOUS SEDIMENT,URINE NOT SEEN; BACTERIA,URINE NOT SEEN; EPITHELIAL CELLS,URINE RARE; MUCUS,URINE RARE; RBC,URINE 0-5 (0-5); WBC,URINE 0-5 (0-5)
[2024-02-03 16:25] LABS: A/G RATIO 1.1 (1.2-2.2); ALANINE AMINOTRANSFERASE,ALT 72 U/L (12-78); ALBUMIN 3.6 g/dL (3.4-5.0); ALKALINE PHOSPHATASE 61 U/L (46-116); ANION GAP 8.7 mmol/L (5.0-14.0); ASPARTATE AMNIOTRANSFERASE,AST 65 U/L (15-37); BILIRUBIN TOTAL 0.9 mg/dL (0.2-1.0); BLOOD UREA NITROGEN,BUN 19 mg/dL (7-18); CALCIUM 9.2 mg/dL (8.5-10.1); CARBON DIOXIDE,CO2 29 mmol/L (21-32); CHLORIDE,CL 103 mmol/L (100-108); CREATININE 1.9 mg/dL (0.8-1.3); EST CRCL DRUG DOSING (CG) 33.62 mL/min; ESTIMATED GFR 36 mL/min (>60); GLUCOSE RANDOM 112 mg/dL (74-106); POTASSIUM,K 4.1 mmol/L (3.6-5.2); PROTEIN TOTAL,TP 6.8 g/dL (6.4-8.2); SODIUM,NA 141 mmol/L (140-148)
[2024-02-03 16:29] LABS: LACTIC ACID 1.1 mmol/L (0.4-2.0)
[2024-02-03 16:43] LABS: INFLUENZA A NAA NEGATIVE (NEGATIVE); INFLUENZA B NAA NEGATIVE (NEGATIVE); RESPIRATORY SYNCYTIAL VIR NAA NEGATIVE (NEGATIVE)
[2024-02-03 16:45] LABS: CORONAVIRUS COVID-19 NAA POSITIVE (NEGATIVE)
[2024-02-03] MEDS: methylPREDNISolone Sodium Succinate 125 MG/2 ML SDV IVPUSH ONE (17:54)
[2024-02-03] MEDS: Levofloxacin/Dextrose 5%-Water 500 MG in Premix Bag 1 BAG IV ONE (17:54)
[2024-02-03] MEDS ORDERED: Sennosides/Docusate Sodium 50-8.6 MG Tab PO PRN (19:13)
[2024-02-03] MEDS ORDERED: Acetaminophen 325 MG Tab PO PRN (19:13)
[2024-02-03] MEDS ORDERED: Ondansetron 4 MG Tab.DIS PO PRN (19:13)
[2024-02-03] MEDS ORDERED: Ondansetron 4 MG/2 ML SDV IV PRN (19:13)
[2024-02-03] MEDS ORDERED: Melatonin 3 MG Tab PO PRN (19:13)
[2024-02-03] MEDS ORDERED: Albuterol 0.083% 2.5 MG/3 ML Neb Soln NEB PRN (19:13)
[2024-02-03] MEDS: Enoxaparin 40 MG/0.4 ML Syringe SUBCUT SCH (19:56)
[2024-02-03] MEDS ORDERED: Gabapentin 300 MG Cap PO SCH (21:00)
[2024-02-03] MEDS ORDERED: Non-Formulary Medication 1 Each (Lifitegrast [Xiidra] 1 EACH Droperette) OP SCH (21:00)
[2024-02-03] MEDS: hydrALAZINE 25 MG Tab PO SCH (21:04)
[2024-02-03] MEDS: Gabapentin 300 MG Cap PO SCH (21:05)
[2024-02-03] MEDS: Amitriptyline 25 MG Tab PO SCH (21:05)
[2024-02-03] MEDS: Hypromellose 0.3% Ophth Soln 15 ML Bottle EYEBOTH SCH (21:05)
[2024-02-04 05:37] LABS: HEMATOCRIT 46.1 % (38.4-49.7); HEMOGLOBIN 14.2 g/dL (12.9-16.9); MEAN CORPUSCULAR HEMOGLOBIN 25.3 pg (31.6-35.5); MEAN CORPUSCULAR HGB CONC 30.8 g/dL (31.6-35.5); MEAN CORPUSCULAR VOLUME 82.2 fL (81.4-99.0); RED BLOOD CELL COUNT 5.61 M/uL (4.14-5.76); WHITE BLOOD CELL COUNT,WBC 4.5 K/uL (3.2-11.0)
[2024-02-04 05:40] LABS: ANION GAP 10.9 mmol/L (5.0-14.0); CALCIUM 8.9 mg/dL (8.5-10.1); CREATININE 1.9 mg/dL (0.8-1.3); EST CRCL DRUG DOSING (CG) 33.62 mL/min
[2024-02-04] MEDS: Pantoprazole 40 MG Tab.CR PO SCH (07:46)
[2024-02-04] MEDS: Rosuvastatin 5 MG Tab PO SCH (07:59)
[2024-02-04] MEDS: Bumetanide 1 MG Tab PO SCH (07:59)
[2024-02-04] MEDS: Allopurinol 100 MG Tab PO SCH (08:00)
[2024-02-04] MEDS: Ferrous Sulfate 325 MG Tab PO SCH (08:00)
[2024-02-04] MEDS ORDERED: CALCITRIOL 0.25 MCG PO SCH (09:00)
[2024-02-04] MEDS ORDERED: Aspirin 81 MG Tab.EC PO SCH (09:00)
[2024-02-04] MEDS: methylPREDNISolone Sodium Succinate 40 MG/1 ML SDV IVPUSH SCH (10:27)
[2024-02-04] MEDS: Albuterol/Ipratropium 3.0-0.5 MG/3 ML Neb Soln NEB SCH (10:29)
[2024-02-04] MEDS: Formoterol/Mometasone 200-5 MCG 8.8 GM Inhaler IH SCH (10:29)
[2024-02-04] MEDS: Tiotropium Bromide 4 GM Inhalation Spray (2.5mcg/1 dose; 10 doses) INH SCH (10:30)
[2024-02-04] MEDS: Levofloxacin/Dextrose 5%-Water 250 MG in Premix Bag 1 BAG IV SCH (20:01)
[2024-02-04] MEDS: Enoxaparin 40 MG/0.4 ML Syringe SUBCUT SCH (21:02)
[2024-02-05 06:04] VITALS: PULSE 72
[2024-02-05] MEDS ORDERED: Tiotropium Bromide 4 GM Inhalation Spray (2.5mcg/1 dose; 10 doses) INH SCH (07:00)
[2024-02-05 09:18] VITALS: BP 189/72
[2024-02-06] MEDS ORDERED: Bumetanide 1 MG Tab PO SCH (09:00)
== END 2024-02-05 10:21 | disposition home or self-care (01) | DRG 177 ==
LOC: JP.ED 15:16 → JP.ICU 18:33
PROVIDERS: ADMIT Registered Nurse; ATTEND Hospitalist
DX: U07.1 COVID-19 (principal); J12.82 Pneumonia due to coronavirus disease 2019; J96.21 Acute and chronic respiratory failure with hypoxia; N18.9 Chronic kidney disease, unspecified; J44.0 Chronic obstructive pulmonary disease with (acute) lower respiratory infection; J44.9 Chronic obstructive pulmonary disease, unspecified; N17.9 Acute kidney failure, unspecified; Z66 Do not resuscitate; H91.90 Unspecified hearing loss, unspecified ear; H54.7 Unspecified visual loss; E78.00 Pure hypercholesterolemia, unspecified; G47.30 Sleep apnea, unspecified; K59.09 Other constipation; K21.9 Gastro-esophageal reflux disease without esophagitis; I12.9 Hypertensive chronic kidney disease with stage 1 through stage 4 chronic kidney disease, or unspecified chronic kidney disease; M10.9 Gout, unspecified; M54.2 Cervicalgia; G89.29 Other chronic pain; M19.90 Unspecified osteoarthritis, unspecified site; E66.9 Obesity, unspecified; N18.32 Chronic kidney disease, stage 3b; J43.9 Emphysema, unspecified; I70.219 Atherosclerosis of native arteries of extremities with intermittent claudication, unspecified extremity; Z99.81 Dependence on supplemental oxygen; Z88.0 Allergy status to penicillin; Z79.51 Long term (current) use of inhaled steroids; Z79.82 Long term (current) use of aspirin; Z79.899 Other long term (current) drug therapy; Z87.81 Personal history of (healed) traumatic fracture; Z98.49 Cataract extraction status, unspecified eye; Z90.89 Acquired absence of other organs; Z98.890 Other specified postprocedural states; Z68.38 Body mass index [BMI] 38.0-38.9, adult
CPT/HCPCS: 0241U; 36415; 71046; 80048; 80053; 81001; 83605; 85025; 85027; 87040; 94640; 97161; 99222; 99232; 99239; A9270-GY; J1650; J1956; J2919; J7030; J7620

== ENCOUNTER 2024-03-02 06:23 | Day surgery (SDC) | payer OTHER, MEDICARE ==
[2024-03-02] MEDS: Lactated Ringers 1,000 ML IV SCH (06:45)
[2024-03-02] MEDS ORDERED: Propofol 200 MG/20 ML SDV ONE (07:08)
[2024-03-02] MEDS ORDERED: fentaNYL 50 MCG/ML SDV ONE (07:08)
[2024-03-02 08:34] VITALS: BP 126/46; PULSE 76
== END 2024-03-02 08:55 | disposition home or self-care (01) ==
LOC: JP.SDS 06:23
PROVIDERS: ATTEND Surgery
DX: K29.50 Unspecified chronic gastritis without bleeding (principal); K21.00 Gastro-esophageal reflux disease with esophagitis, without bleeding; K22.89 Other specified disease of esophagus; J44.9 Chronic obstructive pulmonary disease, unspecified; I25.10 Atherosclerotic heart disease of native coronary artery without angina pectoris; I12.9 Hypertensive chronic kidney disease with stage 1 through stage 4 chronic kidney disease, or unspecified chronic kidney disease; N18.9 Chronic kidney disease, unspecified
CPT/HCPCS: 00731-QZ; 88305; 88312; 88342; J2704; J3010; J7120

== ENCOUNTER 2024-05-26 15:07 | Emergency (ER) | payer OTHER, MEDICARE ==
[2024-05-26 16:02] LABS: BASOPHILS ABSOLUTE AUTO 0.04 K/uL (0.00-0.10); BASOPHILS PERCENT AUTO 0.5 % (0.1-1.3); EOSINOPHILS ABSOLUTE AUTO 0.11 K/uL (0.00-0.40); EOSINOPHILS PERCENT AUTO 1.3 % (0.0-5.4); HEMATOCRIT 35.6 % (38.4-49.7); HEMOGLOBIN 11.8 g/dL (12.9-16.9); IMMATURE GRAN ABSOLUTE AUTO 0.05 K/uL (0.00-0.23); IMMATURE GRAN PERCENT AUTO 0.6 % (0.0-0.7); LYMPHOCYTES ABSOLUTE AUTO 2.17 K/uL (0.8-3.3); MEAN CORPUSCULAR HEMOGLOBIN 28.2 pg (31.6-35.5); MEAN CORPUSCULAR HGB CONC 33.1 g/dL (31.6-35.5); MONOCYTES ABSOLUTE AUTO 0.97 K/uL (0.20-0.90); MONOCYTES PERCENT AUTO 11.6 % (3.3-12.6); NEUTROPHILS ABSOLUTE AUTO 5.02 K/uL (1.0-7.6); PLATELET COUNT,PLT 184 K/uL (130-375); RED BLOOD CELL COUNT 4.19 M/uL (4.14-5.76); WHITE BLOOD CELL COUNT,WBC 8.4 K/uL (3.2-11.0)
[2024-05-26 16:15] LABS: CALCIUM 9.5 mg/dL (8.5-10.1); EST CRCL DRUG DOSING (CG) 10.46 mL/min; POTASSIUM,K 4.3 mmol/L (3.6-5.2)
[2024-05-26 16:20] LABS: ANION GAP 13.3 mmol/L (5.0-14.0)
[2024-05-26 16:21] LABS: CREATININE 6.3 mg/dL (0.8-1.3)
[2024-05-26] MEDS: Sodium Chloride 0.9% 1,000 ML IV SCH ×2 (16:23→18:25)
[2024-05-26 18:31] VITALS: BP 107/47; PULSE 69
== END 2024-05-26 21:19 | disposition other institution (70) ==
LOC: JP.ED 15:07
DX: N17.9 Acute kidney failure, unspecified (principal); I12.9 Hypertensive chronic kidney disease with stage 1 through stage 4 chronic kidney disease, or unspecified chronic kidney disease; N18.9 Chronic kidney disease, unspecified; E78.00 Pure hypercholesterolemia, unspecified; J44.9 Chronic obstructive pulmonary disease, unspecified; K21.9 Gastro-esophageal reflux disease without esophagitis; M19.90 Unspecified osteoarthritis, unspecified site; E66.9 Obesity, unspecified; Z68.39 Body mass index [BMI] 39.0-39.9, adult; Z86.73 Personal history of transient ischemic attack (TIA), and cerebral infarction without residual deficits; Z88.0 Allergy status to penicillin; Z79.51 Long term (current) use of inhaled steroids; Z79.82 Long term (current) use of aspirin; Z79.899 Other long term (current) drug therapy
CPT/HCPCS: 36415; 80048; 85025; 96360; 96361; 99285; J7030